=== PATIENT | female | born 1940 | race Caucasian/White ===

== ENCOUNTER → 2017-12-13 | Outpatient (REF) | payer OTHER ==
[2017-12-13 18:39] LABS: VITAMIN B12 LEVEL 237 PG/ML (247-911)
== END ==
LOC: M LAB REF 17:10
DX: K14.0 Glossitis (principal)
CPT/HCPCS: 82607

== ENCOUNTER 2018-10-19 21:05 | Emergency (ER) | payer OTHER ==
[~2018-10-19] VITALS: Ht 152.4 cm; Wt 90.9 kg
[~2018-10-19 21:05] MED LIST: ACCU1TAB2 OR; ASPI81TA45 OR; CALCTAB22 OR; PROT1TAB2 OR; SERT100T OR; SIMV40TA2 OR; VICO5TAB OR; VITAMIN D50000 UNT OR
[2018-10-19] MEDS ORDERED: VITA200016 PO (21:25)
--- NOTE | 2018-10-19 23:32 | REP ---
Clinical: Trauma. Technique: AP and lateral views of the left humerus. Findings: Degenerative changes at the shoulder and elbow. No acute fracture or dislocation. Impression: No obvious acute fracture or dislocation. Electronically Signed by Mike Maravilla MD 10/19/2018 11:23 P
[2018-10-19 23:43] VITALS: BP 176/85
== END 2018-10-19 23:46 | disposition home or self-care (01) ==
LOC: M ED 21:05
DX: S59.902A Unspecified injury of left elbow, initial encounter (principal); W01.0XXA Fall on same level from slipping, tripping and stumbling without subsequent striking against object, initial encounter; Y92.009 Unspecified place in unspecified non-institutional (private) residence as the place of occurrence of the external cause; Z87.81 Personal history of (healed) traumatic fracture; I10 Essential (primary) hypertension; E78.5 Hyperlipidemia, unspecified; Z79.82 Long term (current) use of aspirin; Z79.899 Other long term (current) drug therapy

== ENCOUNTER → 2019-03-19 | Outpatient (REF) | payer OTHER ==
[~2019-03-19] MED LIST changes: +VITA200016 PO
== END ==
LOC: M LAB REF 16:46
PROVIDERS: ATTEND Nurse Practitioner Adult Health
DX: K14.0 Glossitis (principal)

== ENCOUNTER → 2019-09-20 | Outpatient (REF) | payer OTHER ==
[~2019-09-20] MED LIST changes: +ASPI81TA85 PO; +B-12100010 PO; +ESOM1CAP5 PO; +HM V4000 PO; +PROT1TAB2 PO; +QUIN1TAB3 PO; +SIMV20TA22 PO; +ZOLO50TA PO
== END ==
LOC: M LAB REF 14:24
PROVIDERS: ATTEND Internal Medicine Gastroenterology
DX: R19.7 Diarrhea, unspecified (principal)

== ENCOUNTER 2019-10-02 20:13 | Emergency (ER) | payer OTHER ==
[~2019-10-02] VITALS: Ht 152.4 cm; Wt 86.4 kg
[2019-10-02 21:30] LABS: BASO % 0.7 % (0.0-1.0); EOS # 0.1 10^3/uL (0.0-0.5); EOS % 1.3 % (0.0-3.0); LYMPH # 1.6 10^3/uL (1.5-5.0); LYMPH % 35.5 % (24.0-44.0); MEAN CORPUSCULAR HEMOGLOBIN 26.3 pg (27.0-33.0); MEAN CORPUSCULAR HGB CONC 30.6 g/dl (32.0-36.5); MEAN CORPUSCULAR VOLUME 85.9 fl (80.0-96.0); MONO # 0.4 10^3/uL (0.0-0.8); NEUTROPHILS # 2.4 10^3/uL (1.5-8.5); NEUTROPHILS % 54.3 % (36.0-66.0); PLATELET COUNT, AUTOMATED 220 10^3/uL (150-450); RED BLOOD COUNT 4.19 10^6/uL (4.00-5.40); WHITE BLOOD COUNT 4.5 10^3/uL (4.0-10.0)
[2019-10-02] MEDS ORDERED: ONDANSETRON 4 MG ORAL DISINTEGRATING TAB (Q0162 PER 1MG) PO ONE (22:00)
[2019-10-02 22:14] LABS: APPEARANCE, URINE CLEAR (CLEAR); BACTERIA, URINE AUTO NEGATIVE (NEGATIVE); BILIRUBIN, URINE AUTO NEGATIVE (NEGATIVE); BLOOD, URINE BLOOD NEGATIVE (NEGATIVE); COLOR, URINE YELLOW (YELLOW); GLUCOSE, URINE (UA) AUTO NEGATIVE (NEGATIVE); KETONE, URINE AUTO 1+ mg/dL (NEGATIVE); LEUKOCYTE ESTERASE, URINE AUTO NEGATIVE (NEGATIVE); MUCUS, URINE SMALL (NEGATIVE); NITRITE, URINE AUTO NEGATIVE (NEGATIVE); PROTEIN, URINE AUTO NEGATIVE (NEGATIVE); RBC, URINE AUTO 1 /HPF (0-3); SPECIFIC GRAVITY URINE AUTO 1.025 (1.002-1.035); SQUAMOUS EPITHELIAL CELL UR AU 0 /HPF (0-6); UROBILINOGEN, URINE AUTO 0.2 mg/dL (0.0-2.0); WBC, URINE AUTO 1 /HPF (0-3)
[2019-10-02] MEDS ORDERED: NS 1,000 ML IV ONE (22:30)
[2019-10-02 23:42] VITALS: BP 139/63
== END 2019-10-02 23:49 | disposition home or self-care (01) ==
LOC: M ED 20:13
DX: R10.84 Generalized abdominal pain (principal); E86.0 Dehydration; R11.2 Nausea with vomiting, unspecified; R19.7 Diarrhea, unspecified; I10 Essential (primary) hypertension; K58.0 Irritable bowel syndrome with diarrhea; Z79.82 Long term (current) use of aspirin; Z79.899 Other long term (current) drug therapy
CPT/HCPCS: 80047; 81001; 85025; 96360; 99284; Q0162

== ENCOUNTER → 2019-10-03 | Outpatient (REF) | payer OTHER | LOC: M LAB REF 16:44 | PROVIDERS: ATTEND Physician Assistant | DX: R19.7 Diarrhea, unspecified (principal) ==

== ENCOUNTER → 2021-06-05 | Outpatient (CLI) | payer OTHER ==
[~2021-06-05] MED LIST changes: -ASPI81TA85 PO; +ASPI81TA86 PO; +BAYE81TA10 PO; +OCUVTAB4 PO; +VITA500C24 PO; +ZOLO100T PO
== END ==
LOC: M LABSMTC 11:05
PROVIDERS: ATTEND Anesthesiology
DX: Z01.812 Encounter for preprocedural laboratory examination (principal); Z20.822 Contact with and (suspected) exposure to COVID-19

== ENCOUNTER 2021-06-10 06:51 | Day surgery (SDC) | payer OTHER ==
[~2021-06-10] VITALS: Ht 147.3 cm; Wt 81.2 kg
[~2021-06-10 06:51] MED LIST changes: +NS 1,000 ML IV ONE
--- OUTSIDE RECORDS SUMMARY | 2021-06-10 06:57 | CCD | Continuity of Care Document ---
Author Author Myesha SORIA DO Organization Unknown Address [address] [place] [address] Phone [phone] Care Team Providers Care Substance Abuse Rn Name Role Phone Regine Taylor AUTM [phone] Bina Yusuf ANP AUTM [phone] Sumanth Whiteside MD AUTM [phone] Problems Active Problems Provider Date Gastroesophageal reflux disease GUERDA E[place] Onset : 06/30/2012 Essential hypertension GUERDA Eaton Onset: 012 Osteoporosis GUERDA Eaton Onset: 06/30/2012 Depressive disorder GUERDA Eaton Onset: 06/30/2012 Heart murmur GUERDA Eaton Onset: 06/30/2012 Pure hypercholesterolemia Willam Lemon D.O. Onset: 06/30/2012 Social History Type Date Description Comments Sex Unknown ETOH Use Denies alcohol use Tobacco Use Start: Unknown Patient has never smoked Allergies and adverse reactions Active Allergies Criticality Reaction | Severity Comments Date No Known Drug Allergy Unable to assess criticality 02/17/2011 Medications Active Medications SIG Qnty Indications Ordering Provide r Date Vitamin B12 1000mcg Tablets ER 1 by mouth every day GUERDA West 06/19/[address] 1 by mouth twice every day 180caps GUERDA West 06/19/2018 Vitamin D3 2000Unit Tablets 1 po qd 90tabs GUERDA West 08/24/2016 Sertraline HCL 100mg Tablets take 1 tablet daily 90tabs GUERDA West 06/30/2012 Simvastatin 20mg Tablets take 1 tablet at bedtime 90tabs Bina Yusuf, GUERDA 02/23/2012 Aspirin Adult Low Strength 81mg Ch ewtabs 1 po qd 90units Regine Taylor, [facility] 1 Quinapril HCL 20mg Tablets take 1 tablet daily 90tabs Bnia Yusuf, GUERDA 02/17/2011 Medications Administered in Office Medication SIG Qnty Indications Ordering Provider Date Covid-19 vaccine, Unspecified Inj ection Unknown 05/18/2021 Reclast 1MG [id number] Injection GUERDA West 10/21/2008 IV Infusion Up To 1 Hour Injection GUERDA West 10/21/2008 Immunizations CPT Code Status Date Vaccine Lot # [id number] Given 10/24/2020 Covid-19 Pfizer vaccine, 30 mcg/ 0.3 mL [id number] Given 09/26/2020 Covid-19 Pfizer vaccine, 30 mcg/ 0.3 mL U-Flu Given 05/15/2018 Influenza,Unspecified [id number] Given 06/26/2013 Fluvirin Virus Vaccine 40123 01 51378 Given 05/17/2007 Influenza Virus Vaccine 21241 Given 05/03/2006 Influenza Virus Vaccine [id number] Given 04/19/2005 Pneumovax 23 Vital Signs Date Vital Result Comment 06/09/2021 1:31pm BP Systolic 132 mmHg BP Diastolic 64 mmHg Heart Rate 68 /min Height 62 inches 5'2" Weight 182.00 lb O2 % BldC Oximetry 95 % BMI (Body Mass Index) 33.3 kg/m2 02/25/2021 9:18am BP Systolic 134 mmHg BP Diastolic 82 mmHg Heart Rate 74 /min Height 62 inches 5'2" Weight 188.00 lb O2 % BldC Oximetry 95 % BMI (Body Mass Index) 34.4 kg/m2 Results Test Acquired Date Facility Test Result H/L Range Note Coronavirus 2019 Nasopharygeal 06/05/2021 [facility] [id number] [place] [address] [phone] Coronavirus 2019 Nasopharygeal ASSAY INFORMATIO <SEE N OTE> 1 Complete Blood Count 02/25/2021 [facility] [employer] sjuan Bander Operator: [place] [address] [phone] WBC 4.8 x10*3/UL 4.1 - 10.9 RBC 4.25 x10*6/UL 4.20 - 6.30 Hemoglobin 11.6 g/dL Low 12.0 - 18.0 Hematocrit 35.8 % Low 37.0 - 51.0 MCV 84.2 fL 80.0 - 97.0 MCH 27.4 pg 26.0 - 32.0 MCHC 32.5 g/dL 31.0 - 38.0 RDW 14.3 % High 11.6 - 13.7 PLT 308 x10*3/UL 140 - 440 MPV 8.0 FL 7.8 - 11.0 Lymph % 35.3 % 10.0 - 58.5 Mid % 6.5 % 1.7 - 9.3 Neut % 58.2 % 37.0 - 92.0 Lymph # 1.7 x10*3/UL 0.6 - 4.1 Mid # 0.3 x10*3/UL 0.1 - 0.6 Neut # 2.8 x10*3/UL 2.0 - 7.8 Comprehensive Chem Profile 02/25/2021 [place] [facility] Quan Bander Operator: [place] [address] [phone] Glucose 89 mg/dL 74 - 99 2 BUN 24 mg/dL High 7 - 18 Creatinine 0.8 mg/dL 0.6 - 1.3 Sodium 142 mEq/L 136 - 145 Potassium 4.4 mEq/L 3.5 - 5.1 Chloride 106 mEq/L 98 - 107 Carbon Dioxide 27 mEq/L 21 - 32 Calcium 9.1 mg/dL 8.5 - 10.1 Alk. Phosphatase 63 mg/dL 46 - 116 Total Bilirubin 0.5 mg/dL 0.2 - 1.0 Ast (Sgot) 14 U/L Low 15 - 37 Alt (SGPT) 22 U/L 12 - 78 Albumin 3.9 g/dL 3.4 - 5.0 Total Protein 6.7 g/dL 6.4 - 8.2 A/G Ratio 1.39 CALC 1.00 - 1.90 GFR >= 60 mL/min >60 GFR >= 60 mL/min >60 3 Lipid Profile 02/25/2021 [facility] Bander Operator: [place] [address] [phone] Cholesterol 213 mg/dL High 131 - 200 Triglycerides 66 mg/dL 30 - 150 HDL Cholesterol 108 mg/dL High 35 - 60 LDL (Calculated) 92 CALC 50 - 159 1 ASSAY INFORMATION: Real Time RT-PCR NOTE: The COVID-19 assay has been cleared by the U.S. Food and Drug Administration under the Emergency Use Authorization (EUA). [facility] are designated as high complexity laboratories by the Clinical Laboratory Improvement Amendments of 1988(CLIA) and are qualified to perform this test. Not Detected 2 100-125 mg/dL PRE-DIABET ES/FASTING >126 mg/dL DIABETES/FASTING 3 CHRONIC KIDNEY DISEASE STAGI NG PER NKF STAGE I & II GFR >= 60 NORMAL TO MILDLY DECREASED STAGE III GFR 30-59 MODERATELY DECREASED STAGE IV GFR 15-29 SEVERELY DECREASED STAGE V GFR <15 VERY LITTLE GFR LEFT ESRD GFR <15 ON MOLD PULLER Procedures Date Code Description Status 06/08/2021 740852813 Diabetic Retinal Eye Exam [facility] 02/25/2021 85371 Office/Outpatient Established Lo w MDM 20-29 Min Completed 06/28/2013 [id number] Mammogram Completed 06/26/2012 [id number] Colonoscopy Completed 06/13/2012 [id number] Mammogram Completed 09/30/2008 [id number] Mammogram Completed 08/16/2007 [id number] Bone Mineral Density Test Comple [facility] Medical Devices Description No Information Available Encounters Type Date Location Provider Dx Diagnosis Office Visit 02/25/2021 9:20a [facility] Bina Yusuf, ANP I10 Essential (primary) hypertension E78.00 Pure hypercholesterolemia, u nspecified K21.9 Gastro-esophageal reflux dis ease without esophagitis F33.0 Major depressive disorder, r ecurrent, mild Assessments Date Code Description Provider 02/25/2021 I10 Essential (primary) hypertension GUERDA West 02/25/2021 E78.00 Pure hypercholesterolemia, unspe cified GUERDA West 02/25/2021 K21.9 Gastro-esophageal reflux disease without esophagitis GUERDA West 02/25/2021 F33.0 Major depressive disorder, recur rent, mild GUERDA West Plan of Treatment Future Appointment(s):* 03/03/2022 8:20 am - GUERDA West at [facility] Functional Status Description No Information Available Mental Status Description No Information Available Referrals Description No Information Available
--- OUTSIDE RECORDS SUMMARY | 2021-06-10 06:57 | CCD | Continuity of Care Document ---
Author Author Myesha CATHERINE MD Organization Unknown Address [address] [place] [address] Phone [phone] Care Team Providers Care Decommissioning Well Site Manager Name Role Phone Bina Yusuf ANP AUTM [phone] Problems Description No Information Available Social History Type Date Description Comments Sex Unknown Tobacco Use Start: Unknown Never Smoked Cigarettes Tobacco Use Start: Unknown Non-smoker, Non-drinker, Non-dean g User Smoking Status Reviewed: 06/08/21 Non-smoker, Non-drinker, Non- drug User Exercise Type/Frequency Does not exercise Allergies and adverse reactions Description No Known Drug Allergies Medications Active Medications SIG Qnty Indications Ordering Provide r Date Simvastatin 20mg Tablets juanito y Unknown Sertraline HCL 50mg Tablets 1 by mouth every day Unknown Esomeprazole Magnesium 20mg Capsul es DR 1 by mouth every day Unknown Quinapril HCL 20mg Tablets Unknown Aspirin Adult Low Dose 81mg Tablet s DR 1 by mouth every day Unknown Vitamin D3 50mcg (1999 Ut) Capsules Unknown Vitamin B12 500mcg Tablets by mouth daily Unknown Vitamin C 500mg Chewtabs 2x a day Unknown Immunizations Description No Information Available Vital Signs Date Vital Result Comment 06/08/2021 10:35am BP Systolic 122 mmHg BP Diastolic 72 mmHg Height 58.50 inches 4'10.50" Weight 181.00 lb BMI (Body Mass Index) 37.2 kg/m2 BSA (Body Surface Area) 1.76 m2 Results Description No Information Available Procedures Date Code Description Status 06/08/2021 98147 Office/Outpatient New Moderate M DM 45-59 Minutes Completed Medical Devices Description No Information Available Encounters Type Date Location Provider Dx Diagnosis Office Visit 06/08/2021 10:15a [facility] soft water mechanic Peyton Catherine MD 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 Assessments Date Code Description Provider 06/08/2021 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
--- OUTSIDE RECORDS SUMMARY | 2021-06-10 06:57 | CCD ---
Author Author [facility] Organization [facility] Address Unknown Phone Unavailable Care Team Providers Care Loom Doffer Name Role Phone Arlette Bob MD Unavailable Unavailable Arlette Bob MD Unavailable Unavailable Arlette Bob MD Unavailable Unavailable Arlette Bob MD Unavailable Unavailable Arlette Bob MD Unavailable Unavailable Arlette Bob MD Unavailable Unavailable Arlette Bob MD Unavailable Unavailable Arlette Bob MD Unavailable Unavailable Arlette Bob MD Unavailable Unavailable Arlette Bob MD Unavailable Unavailable Arlette Bob MD Unavailable Unavailable Arlette Bob MD Unavailable Unavailable Arlette Bob MD Unavailable Unavailable Arlette Bob MD Unavailable Unavailable Arlette Bob MD Unavailable Unavailable Arlette Bob MD Unavailable Unavailable Arlette oBb MD Unavailable Unavailable Arlette Bob MD Unavailable Unavailable Arlette Bob MD Unavailable Unavailable Arlette Bob MD Unavailable Unavailable Arlette Bob MD Unavailable Unavailable Arlette Bob MD Unavailable Unavailable Arlette Bob MD Unavailable Unavailable Arlette Bob MD Unavailable Unavailable Arlette Bob MD Unavailable Unavailable Arlette Bob MD Unavailable Unavailable Arlette Bob MD Unavailable Unavailable Arlette Bob MD Unavailable Unavailable Arlette Bob MD Unavailable Unavailable Arlette Bob MD Unavailable Unavailable Arlette Bob MD Unavailable Unavailable Arlette Bob MD Unavailable Unavailable Arlette Bob MD Unavailable Unavailable Arlette Bob MD Unavailable Unavailable Paulino, S Sebastian RIVAS Unavailable Unavailable Paulino, S Sebastian MD Unavailable Unavailable Paulino, S Sebastian MD Unavailable Unavailable Paulino, S Sebastian MD Unavailable Unavailable Paulino, S Sebastian MD Unavailable Unavailable Paulino, S Sebastian MD Unavailable Unavailable Paulino, S Sebastian MD Unavailable Unavailable Paulino, S Sebastian MD Unavailable Unavailable Paulino, S Sebastian MD Unavailable Unavailable Paulino, S Sebastian MD Unavailable Unavailable Paulino, S Sebastian MD Unavailable Unavailable Paulino, S Sebastian MD Unavailable Unavailable Paulino, S Sebastian MD Unavailable Unavailable Paulino, S Sebastian MD Unavailable Unavailable Paulino, S Sebastian MD Unavailable Unavailable Paulino, S Sebastian MD Unavailable Unavailable Paulino, S Sebastian MD Unavailable Unavailable CATHERINE, Loren AWAN MD Unavailable Unavailable CATHERINE, Loren AWAN MD Unavailable Unavailable CATHERINE, Loren AWAN MD Unavailable Unavailable CATHERINE, Loren AWAN MD Unavailable Unavailable CATHERINE, Loren AWAN MD Unavailable Unavailable CATHERINE, Loren AWAN MD Unavailable Unavailable CATHERINE, Loren AWAN MD Unavailable Unavailable CATHERINE, Loren AWAN MD Unavailable Unavailable CATHERINE, Loren AWAN MD Unavailable Unavailable CATHERINE, Loren AWAN MD Unavailable Unavailable CATHERINE, Loren AWAN MD Unavailable Unavailable CATHERINE, Loren AWAN MD Unavailable Unavailable CATHERINE, Loren AWAN MD Unavailable Unavailable CATHERINE, Loren AWAN MD Unavailable Unavailable CATHERINE, Loren AWAN MD Unavailable Unavailable CATHERINE, Loren AWAN MD Unavailable Unavailable CATHERINE, Loren AWAN MD Unavailable Unavailable CATHERINE, Loren AWAN MD Unavailable Unavailable CATHERINE, Loren AWAN MD Unavailable Unavailable CATHERINE, Loren AWAN MD Unavailable Unavailable CATHERINE, Loren AWAN MD Unavailable Unavailable CATHERINE, Loren AWAN MD Unavailable Unavailable CATHERINE, Loren AWAN MD Unavailable Unavailable CATHERINE, Loren AWAN MD Unavailable Unavailable CATHERINE, Loren AWAN MD Unavailable Unavailable CATHERINE, Loren AWAN MD Unavailable Unavailable CATHERINE, Loren AWAN MD Unavailable Unavailable CATHERINE, Loren AWAN MD Unavailable Unavailable CATHERINE, Loren AWAN MD Unavailable Unavailable CATHERINE, Loren AWAN MD Unavailable Unavailable CATHERINE, Loren AWAN MD Unavailable Unavailable CATHERINE, Loren AWAN MD Unavailable Unavailable CATHERINE, Loren AWAN MD Unavailable Unavailable CATHERINE, Loren AWAN MD Unavailable Unavailable CATHERINE, Loren AWAN MD Unavailable Unavailable CATHERINE, Loren AWAN MD Unavailable Unavailable CATHERINE, Loren AWAN MD Unavailable Unavailable CATHERINE, Loren AWAN MD Unavailable Unavailable CATHERINE, Loren AWAN MD Unavailable Unavailable Loren CATHERINE MD Unavailable Unavailable Loren CATHERINE MD Unavailable Unavailable Loren CATHERINE MD Unavailable Unavailable Loren CATHERINE MD Unavailable Unavailable Loren CATHERINE MD Unavailable Unavailable Loren CATHERINE MD Unavailable Unavailable FLORIDALMA, J Bina ANP Unavailable Unavailable FLORIDALMA, J Bina ANP Unavailable Unavailable FLORIDALMA, J Bina ANP Unavailable Unavailable FLORIDALMA, J Bina ANP Unavailable Unavailable FLORIDALMA, J Bina ANP Unavailable Unavailable FLORIDALMA, J Bina ANP Unavailable Unavailable FLORIDALMA, J Bina ANP Unavailable Unavailable FLORIDALMA, J Bina ANP Unavailable Unavailable FLORIDALMA, J Bina ANP Unavailable Unavailable FLORIDALMA, J Bina ANP Unavailable Unavailable FLORIDALMA, J Bina ANP Unavailable Unavailable FLORIDALMA, J Bina ANP Unavailable Unavailable FLORIDALMA, J Bina ANP Unavailable Unavailable FLORIDALMA, J Bina ANP Unavailable Unavailable FLORIDALMA, J Bina ANP Unavailable Unavailable FLORIDALMA, J Bina ANP Unavailable Unavailable FLORIDALMA, J Bina ANP Unavailable Unavailable FLORIDALMA, J Bina ANP Unavailable Unavailable FLORIDALMA, J Bina ANP Unavailable Unavailable FLORIDALMA, J Bina ANP Unavailable Unavailable FLORIDALMA, J Bina ANP Unavailable Unavailable FLORIDALMA, J Bina ANP Unavailable Unavailable FLORIDALMA, J Bina ANP Unavailable Unavailable FLORIDALMA, J Bina ANP Unavailable Unavailable FLORIDALMA, J Bina ANP Unavailable Unavailable FLORIDALMA, J Bina ANP Unavailable Unavailable FLORIDALMA, J Bina ANP Unavailable Unavailable FLORIDALMA, J Bina ANP Unavailable Unavailable FLORIDALMA, J Bina ANP Unavailable Unavailable FLORIDALMA, J Bina ANP Unavailable Unavailable FLORIDALMA, J Bina ANP Unavailable Unavailable FLORIDALMA, J Bina ANP Unavailable Unavailable FLORIDALMA, J Bina ANP Unavailable Unavailable FLORIDALMA, J Bina ANP Unavailable Unavailable FLORIDALMA, J Bina ANP Unavailable Unavailable FLORIDALMA, J Bina ANP Unavailable Unavailable FLORIDALMA, J Bina ANP Unavailable Unavailable FLORIDALMA, J Bina ANP Unavailable Unavailable FLORIDALMA, J Bina ANP Unavailable Unavailable FLORIDALMA, J Bina ANP Unavailable Unavailable FLORIDALMA, J Bina ANP Unavailable Unavailable FLORIDALMA, J Bina ANP Unavailable Unavailable FLORIDALMA, J Bina ANP Unavailable Unavailable FLORIDALMA, J Bina ANP Unavailable Unavailable FLORIDALMA, J Bina ANP Unavailable Unavailable FLORIDALMA, J Bina ANP Unavailable Unavailable FLORIDALMA, J Bina ANP Unavailable Unavailable FLORIDALMA, J Bina ANP Unavailable Unavailable FLORIDALMA, J Bina ANP Unavailable Unavailable FLORIDALMA, J Bina ANP Unavailable Unavailable FLORIDALMA, J Bina ANP Unavailable Unavailable FLORIDALMA, J Bina ANP Unavailable Unavailable FLORIDALMA, J Bina ANP Unavailable Unavailable FLORIDALMA, J Bina ANP Unavailable Unavailable FLORIDALMA, J Bina ANP Unavailable Unavailable FLORIDALMA, J Bina ANP Unavailable Unavailable FLORIDALMA, J Bina ANP Unavailable Unavailable FLORIDALMA, J Bina ANP Unavailable Unavailable FLORIDALMA, J Bina ANP Unavailable Unavailable FLORIDALMA, J Bina ANP Unavailable Unavailable FLORIDALMA, J Bina ANP Unavailable Unavailable FLORIDALMA, J Bina ANP Unavailable Unavailable FLORIDALMA, J Bina ANP Unavailable Unavailable FLORIDALMA, J Bina ANP Unavailable Unavailable Re-disclosure Warning The records that you are about to access may contain information from federally-assisted alcohol or drug abuse programs. If such information is present, then the following federally mandated warning applies: This information has been disclosed to you from records protected by federal confidentiality rules (42 CFR part 2). The federal rules prohibit you from making any further disclosure of this information unless further disclosure is expressly permitted by the written consent of the person to whom it pertains or as otherwise permitted by 42 CFR part 2. A general authorization for the release of medical or other information is NOT sufficient for this purpose. The Federal rules restrict any use of the information to criminally investigate or prosecute any alcohol or drug abuse patient.The records that you are about to access may contain highly sensitive health information, the redisclosure of which is protected by Article 27-F of the [facility] Public Health law. If you continue you may have access to information: Regarding HIV / AIDS; Provided by facilities licensed or operated by the [facility] Office of Mental Health; or Provided by the [facility] Office for People With Developmental Disabilities. If such information is present, then the following [facility] mandated warning applies: This information has been disclosed to you from confidential records which are protected by state law. State law prohibits you from making any further disclosure of this information without the specific written consent of the person to whom it pertains, or as otherwise permitted by law. Any unauthorized further disclosure in violation of state law may result in a fine or senior care sentence or both. A general authorization for the release of medical or other information is NOT sufficient authorization for further disc losure. Family History Family Member Name Family Member Gender Family Member Status Date o f Status Description Data Source(s) Unknown Male Problem [facility] ([facility]) Encounters Encounter Providers Location Date Indications Data Source(s ) Outpatient Attender: LV CATHERINE MD [facility] typing office worker 09:15:00 AM EST [facility] ([facility]) Outpatient Attender: Sebastian Bob MD Main Office 04/14/2021 03:45:00 PM EDT [facility] ([facility]) Outpatient Attender: Bina Allan 10/2020 09:20:00 AM EDT [facility] ([facility] ) Immunizations Vaccine Date Status Description Data Source(s) COVID-19 VACCINE Moderna 05/18/2021 12:00:00 AM EDT completed [facility]SIIS Vaccine Series Complete: YESThis Data wa s Submitted to [facility]. Covid-19 Pfizer vaccine, 30 mcg/ 0.3 mL 10/24/2020 09:22:00 AM EDT completed [facility] ([facility]) COVID-19 VACCINE Moderna 10/24/2020 12:00:00 AM EDT completed [facility]SIIS Vaccine Series Complete: YESThis Data wa s Submitted to [facility]. Covid-19 Pfizer vaccine, 30 mcg/ 0.3 mL 09/26/2020 08:22:00 AM EST completed [facility] ([facility]) COVID-19 VACCINE Moderna 09/26/2020 12:00:00 AM EST completed [facility]SIIS Vaccine Series Complete: NOThis Data was Submitted to [facility]. Medications Medication Brand Name Start Date Product Form Dose Route Admi nistrative Instructions Pharmacy Instructions Status Indications Reaction Description Data Source(s) Covid-19 vaccine, Unspecified 05/18/2021 12:00:00 AM EDT completed [facility]) Medication administered onsite Sutab Sutab 04/14/2021 12:00:00 AM EDT active [facility] ([facility]) Insurance Providers Payer name Policy type / Coverage type Policy ID Covered libertarian ID Covered libertarian's relationship to anderson Policy Anderson Plan Information [facility] [id number] SP [id number] [id number] [facility] [id number] SP [id number] Ghi/Emblem HLTH (pr) [facility] Part B [id number] Family Dependent [id number] Cigna/Nalc/MVP Commercial [id number] Family Dependent [id number] Cigna/Nalc/MVP Commercial [id number] Family Dependent Cigna Health and Life Ins Co F [id number] SELF [id number] Medicare C [id number] SELF [id number] A [facility] Benefit Plan F [id number] SELF [id number] Medicare C awaiting SELF awaiting Cigna Ins (pr)/Mary Commercial [id number] Self [id number] [facility]blem [facility] [id number] Self [id number] [facility] HEALTH BENEFIT PLAN [id number] 2 [id number] [facility] Commercial [id number] Self [id number] Ghi/Emblem Health Medigap Part B [id number] Self Fehp Cign[employer] Health and Life Insurance Co F [id number] SELF [id number] [facility]GHI [facility] P [id number] S [id number] SELF PAY 2 UNAVAILABLE 1 UNAVAILA BLE [facility] HEALTH BENEFIT PLAN [id number] SP [id number] Problems, Conditions, and Diagnoses Code Display Name Description Problem Type Effective Dates Data Source(s) [id number] Screening for malignant neoplasm of colo n Screening for malignant neoplasm of colon Problem 04/14/2021 12:00:00 AM EDT [facility] ([facility]) Surgeries/Procedures Procedure Description Date Indications Data Source(s) Diabetic Retinal Eye Exam 06/08/2021 12:00:00 AM EST [facility] ([facility]) OFFICE OUTPATIENT NEW 45 MINUTES 06/08/2021 12:00:00 A M EST [facility] ([facility]) OFFICE OUTPATIENT VISIT 25 MINUTES 04/14/2021 12:00:00 AM EDT [facility] ([facility]) OFFICE OUTPATIENT VISIT 15 MINUTES 02/25/2021 12:00:00 AM EDT [facility] ([facility]) Results ID Date Data Source [id number] 06/05/2021 09:20:00 AM EST [facility] ([facility]) Name Value Range Interpretation Code Description Data Jamila rce(s) Supporting Document(s) Coronavirus 2019 Nasopharygeal Laboratory test result [facility] ASSAY INFORMATION: Real Time RT-PCR NOTE: The COVID-19 assay has been cleared by the U.S. Food and Drug Administration under the Emergency Use Authorization (EUA). [facility] and [facility] are designated as high complexity laboratories by the Clinical Laboratory Improvement Amendments of 1988(CLIA) and are qualified to perform this test. Not Detected ID Date Data Source [id number] 02/25/2021 09:46:00 AM EDT [facility] ([facility]) Name Value Range Interpretation Code Description Data Jamila rce(s) Supporting Document(s) Triglyceride [Mass/volume] in Serum or Plasma 66 mg/dL 30-150 [facility] ([facility]) Cholesterol [Mass/volume] in Serum or Plasma 213 mg/dL 131-200 [facility] ([facility]) Cholesterol in LDL [Mass/volume] in Serum or Plasma by calcu lation 92 CALC 50-159 [facility] ([facility]) Cholesterol in HDL [Mass/volume] in Serum or Plasma 108 mg/dL 35-60 [facility] ([facility]) ID Date Data Source [id number] 02/25/2021 09:46:00 AM EDT [facility] ([facility]) Name Value Range Interpretation Code Description Data Jamila rce(s) Supporting Document(s) Glucose [Mass/volume] in Serum or Plasma 89 mg/dL 74-99 [facility] ([facility]) 100-125 mg/dL PRE-DIABETES/FASTING >126 mg/dL DIABETES/FASTING Urea nitrogen [Mass/volume] in Serum or Plasma 24 mg/dL 7-18 [facility] ([facility]) Creatinine 0.8 mg/dL 0.6-1.3 [facility] ([facility]) Sodium [Moles/volume] in Serum or Plasma 142 meq/L 136-145 [facility] ([facility]) Potassium [Moles/volume] in Serum or Plasma 4.4 meq/L 3.5-5.1 [facility] ([facility]) Chloride [Moles/volume] in Serum or Plasma 106 meq/L 98-107 [facility] ([facility]) Carbon dioxide, total [Moles/volume] in Serum or Plasma 27 meq/L 21 -32 [facility] ([facility]) Calcium [Mass/volume] in Serum or Plasma 9.1 mg/dL 8.5-10.1 [facility] ([facility]) Alkaline phosphatase isoenzyme [Units/volume] in Serum or Pl asma 63 mg/dL 46-116 [facility] Total Bilirubin 0.5 mg/dL 0.2-1.0 [facility] ([facility]) Aspartate aminotransferase [Enzymatic activity/volume] in Serum or Plasma 14 U/L 15-37 [facility] ([facility] ) Albumin [Mass/volume] in Serum or Plasma 3.9 g/dL 3.4-5.0 [facility] Alanine aminotransferase [Enzymatic activity/volume] in Seru m or Plasma 22 U/L 12-78 [facility] ([facility]) Proteinase 3 Ab [Units/volume] in Serum 6.7 g/dL 6.4-8.2 [facility] A/G Ratio 1.39 CALC 1.00-1.90 [facility]) Glomerular filtration rate/1.73 sq M pre dicted among blacks [Volume Rate/Area] in Serum or Plasma by Creatinine-based formula (MDRD) Laboratory test result [facility]) <content>CHRONIC KIDNEY DISEASE STAGING PER NKF</content>
<content></content>
<content>STAGE I & II GFR >= 60 NORMAL TO MILDLY DECREASED</content>
<content>STAGE III GFR 30-59 MODERATELY DECREASED</content>
<content>STAGE IV GFR 15-29 SEVERELY DECREASED</content>
<content>STAGE V GFR <15 VERY LITTLE GFR LEFT</content>
<content>ESRD GFR <15 ON COCKTAIL LOUNGE MANAGER</content>
<content></content> Glomerular filtration rate/1.73 sq M pre dicted among non-blacks [Volume Rate/Area] in Serum or Plasma by Creatinine-based formula (MDRD) Laboratory test result [facility] ([facility] ) ID Date Data Source [id number] 02/25/2021 09:46:00 AM EDT [facility] ([facility]) Name Value Range Interpretation Code Description Data Jamila rce(s) Supporting Document(s) Leukocytes [#/volume] in Blood by Automated count 4.8 x10*3/UL 4.1-10 .9 [facility] ([facility]) Hemoglobin [Mass/volume] in Blood 11.6 g/dL 12.0-18.0 [facility] Erythrocytes [#/volume] in Blood by Automated count 4.25 x10*6/UL 4.2 0-6.30 [facility] Hematocrit [Volume Fraction] of Blood by Automated count 35.8 % 3 7.0-51.0 [facility] MCH 27.4 pg 26.0-32.0 [facility]) MCV 84.2 fL 80.0-97.0 [facility] ([facility]) MCHC 32.5 g/dL 31.0-38.0 [facility] ([facility]) Platelets [#/volume] in Blood by Automated count 308 x10*3/UL 140-440 [facility] Erythrocyte distribution width [Ratio] by Automated count 14.3 % 11.6-13.7 [facility] ([facility]) Lymph % 35.3 % 10.0-58.5 [facility]) MPV 8.0 FL 7.8-11.0 [facility] ([facility]) Mid % 6.5 % 1.7-9.3 [facility]) Lymph # 1.7 x10*3/UL 0.6-4.1 [facility] ([facility]) Neut % 58.2 % 37.0-92.0 [facility] Mid # 0.3 x10*3/UL 0.1-0.6 [facility] ([facility]) Neut # 2.8 x10*3/UL 2.0-7.8 [facility] ([facility]) Procedure Social History Code Duration Value Status Description Data Source(s ) Smoking 06/08/2021 12:00:00 AM EST Non-smoker, Non-drink er, Non-drug User completed Non-smoker, Non-drinker, Non-drug User [facility] ([facility]) Vital Signs ID Date Data Source UNK Name Value Range Interpretation Code Description Data Source(s) Systolic blood pressure 132 mm[Hg] 132 mm[Hg] M EDENT ([facility]) Diastolic blood pressure 64 mm[Hg] 64 mm[Hg] [facility] ([facility]) Heart rate 68 /min 68 /min [facility] ([facility]) Body height 62 [in_i] 62 [in_i] [facility] ([facility]) 5'2" Body weight 182.00 [lb_av] 182.00 [lb_av] MED[facility] T ([facility]) Oxygen saturation in Arterial blood by Pulse oximetry 95 % 95 % [facility] ([facility]) Body mass index (BMI) [Ratio] 33.3 kg/m2 33.3 k g/m2 [facility] ([facility]) Body mass index (BMI) [Ratio] 37.2 kg/m2 37.2 k g/m2 [facility] ([place] [facility]) Body surface area Derived from formula 1.76 m2 1.76 m2 [facility] ([facility]) Systolic blood pressure 122 mm[Hg] 122 mm[Hg] M EDENT ([facility]) Diastolic blood pressure 72 mm[Hg] 72 mm[Hg] [facility] ([facility]) Body height 58.50 [in_i] 58.50 [in_i] [facility] ([facility]) 4'10.50" Body weight 181.00 [lb_av] 181.00 [lb_av] MEDEN T ([facility]) Body height 61 [in_i] 61 [in_i] [facility] 5'1" Body weight 185.00 [lb_av] 185.00 [lb_av] [facility] T ([facility]) Systolic blood pressure 128 mm[Hg] 128 mm[Hg] M EDENT ([facility]) Diastolic blood pressure 81 mm[Hg] 81 mm[Hg] [facility] ([facility]) Heart rate 98 /min 98 /min [facility] Body mass index (BMI) [Ratio] 35.0 kg/m2 35.0 k g/m2 [facility] ([facility]) Body weight 83.916 kg 83.916 kg [facility] ([facility]) Body temperature 97.7 [degF] 97.7 [degF] [facility] ([facility]) Oxygen saturation in Arterial blood by Pulse oximetry 95 % 95 % [facility] Heart rate 74 /min 74 /min [facility] ([facility]) Body height 62 [in_i] 62 [in_i] [facility] ([facility]) 5'2" Body weight 188.00 [lb_av] 188.00 [lb_av] MED[facility] T ([facility]) Body mass index (BMI) [Ratio] 34.4 kg/m2 34.4 k g/m2 [facility] ([facility]) Systolic blood pressure 134 mm[Hg] 134 mm[Hg] M EDENT ([facility]) Diastolic blood pressure 82 mm[Hg] 82 mm[Hg] [facility] ([facility])
--- OUTSIDE RECORDS SUMMARY | 2021-06-10 06:57 | CCD | Continuity of Care Document ---
Author Author Myesha BOB M.D. Organization Unknown Address [address] [place] [address] Phone [phone] Care Team Providers Care Service Secretary Name Role Phone Bina Yusuf AUTM [phone] Problems Active Problems Provider Date Screening for malignant neoplasm of colon Sebastian contreras M.D. Onset: 04/14/2021 Diarrhea Sebastian Bob M.D. Onset: 09/13/19 20 Stricture of esophagus Peter Sin Onset: 06/13 History of polyp of colon Peter Sin Onset: Gastroesophageal reflux disease Peter Sin Ons et: 06/13/2012 Essential hypertension Onset: 06/13/2012 Social History Type Date Description Comments Sex Unknown ETOH Use Denies alcohol use Tobacco Use Start: Unknown Patient has never smoked Allergies and adverse reactions Description No Known Drug Allergies Medications Active Medications SIG Qnty Indications Ordering Provide r Date Sutab [id number] Tablets as directed 1box Sebastian Bob M.D. 04/14/2021 Levaquin 500mg Tablets 1 tab by mouth every morning 5tabs Sebastian Bob M.D. 020 Quinapril HCL 20mg Tablets Regine Taylor,A.N.P. Sertraline HCL 50mg Tablets Regine Taylor,A.N.P. Simvastatin 20mg Tablets Regine Taylor,A.N.P. Aspirin Adult Low Dose 81mg Tablets DR Unknown B12 Unknown D3 Dots 50mcg (1999) Tablets Dispers Unknown Pantoprazole Sodium 40mg Tablets DR Unknown Immunizations Description No Information Available Vital Signs Date Vital Result Comment 04/14/2021 4:19pm Height 61 inches 5'1" Weight 185.00 lb BP Systolic 128 mmHg BP Diastolic 81 mmHg Heart Rate 98 /min BMI (Body Mass Index) 35.0 kg/m2 Weight 83.916 kg Body Temperature 97.7 F 09/13/2019 3:31pm Height 61 inches 5'1" Weight 191.00 lb BP Systolic 120 mmHg BP Diastolic 85 mmHg Heart Rate 95 /min BMI (Body Mass Index) 36.1 kg/m2 Weight 86.638 kg Results Description No Information Available Procedures Date Code Description Status 04/14/2021 80170 Office/Outpatient Established Mo d MDM 30-39 Min Completed Medical Devices Description No Information Available Encounters Type Date Location Provider Dx Diagnosis Office Visit 04/14/2021 3:45p Main Office Sebastian Bob M.D. R 19.7 Diarrhea, unspecified K21.9 Gastro-esophageal reflux dis ease without esophagitis Assessments Date Code Description Provider 04/14/2021 R19.7 Diarrhea, unspecified Sebastian Bob M.D. 04/14/2021 K21.9 Gastroesophageal reflux disease Sebastian Bob M.D. Plan of Treatment Future Appointment(s):* 06/10/2021 8:30 am - Sebastian Bob M.D. at Main Office 04/14/2021 - Sebastian Bob M.D.* R19.7 Diarrhea, unspecified* Comments:* 80 yo wf who presents for a colonoscopy/egd due to a h/o irregular bowel habits/heartburn. Pt denies rectal bleeding. Has had explosive bouts of diarrhea. No family h/o colon cancer. No h/o chest pain, or sob. Pt has lost 25 lbs. Last scope was in . She has had a great deal of stress. Plan:1. Colonoscopy + egd.2. Informed consent. * K21.9 Gastroesophageal reflux disease* Comments:* As above. Functional Status Description No Information Available Mental Status Description No Information Available Referrals Description No Information Available
[2021-06-10] MEDS ORDERED: LIDOCAINE 2% 100MG/5ML SDV (FOR ANES.) As Ordered ONE (08:32)
[2021-06-10] MEDS ORDERED: propofoL 500 MG/50 ML VIAL As Ordered ONE (08:32)
--- NOTE | 2021-06-10 08:38 | ROOR ---
Patient Name: Myesha Monsalve Procedure Date: 06/10/2021 7:54 AM Date of : 1940 Age: 80 Room: [facility] Gender: Female Note Status: Finalized Procedure: Upper Endoscopy + Biopsies Indications: Heartburn, Exclusion of Mcmanus's esophagus Providers: Sebastian Bob MD Referring MD: Bina Yusuf NP Requesting Provider: Medicines: Monitored Anesthesia Care Complications: No immediate complications. Procedure: Pre-Anesthesia Assessment: - The heart rate, respiratory rate, oxygen saturations, blood pressure, adequacy of pulmonary ventilation, and response to care were monitored throughout the procedure. The Endoscope was introduced through the mouth, and advanced to the second part of duodenum. The upper GI endoscopy was accomplished without difficulty. The patient tolerated the procedure well. Findings: The Z-line was regular and was found 30 cm from the incisors. Multiple biopsies were obtained with cold forceps for evaluation to rule out Mcmanus's Esophagus randomly at the gastroesophageal junction. A large hiatal hernia was present. Localized mild inflammation characterized by congestion (edema) and erythema was found in the gastric antrum. Biopsies were taken with a cold forceps for Helicobacter pylori testing. The exam of the duodenum was otherwise normal. Impression: - Z-line regular, 30 cm from the incisors. - Large hiatal hernia. - Mucosal changes suspicious for gastritis. Biopsied. - Multiple biopsies were obtained at the gastroesophageal junction. - The examination was otherwise normal. Recommendation: - Patient has a contact number available for emergencies. The signs and symptoms of potential delayed complications were discussed with the patient. Return to normal activities tomorrow. Written discharge instructions were provided to the patient. - High fiber diet. - Discharge patient to home. - Continue present medications. - Await pathology results. - Telephone GI clinic for pathology results in 1 week. - Return to referring physician. - Do an upper GI series at appointment to be scheduled. - The findings and recommendations were discussed with the patient. Procedure Code(s): --- Professional --- 01246, Esophagogastroduodenoscopy, flexible, transoral; with biopsy, single or multiple Diagnosis Code(s): --- Professional --- K44.9, Diaphragmatic hernia without obstruction or gangrene K31.89, Other diseases of stomach and duodenum R12, Heartburn CPT copyright 2019 [employer]. All rights reserved. The codes documented in this report are preliminary and upon green building materials designer review may be revised to meet current compliance requirements. Sebastian Bob MD Sebastian Bob MD 06/10/2021 8:37:52 AM Electronically signed by Sebastian Bob MD Number of Addenda: 0 Note Initiated On: 06/10/2021 7:54 AM Estimated Blood Loss: Estimated blood loss: none.
--- NOTE | 2021-06-10 08:42 | ROOR ---
Patient Name: Myesha Monsalve Procedure Date: 06/10/2021 7:54 AM Date of : 1940 Age: 80 Room: [facility] Gender: Female Note Status: Finalized Procedure: Total Colonoscopy to Cecum + Bx. + Cold Snare Polypectomy Indications: Change in bowel habits, Clinically significant diarrhea of unexplained origin Providers: Sebastian Bob MD Referring MD: Bina Yusuf NP Requesting Provider: Medicines: Monitored Anesthesia Care Complications: No immediate complications. Procedure: Pre-Anesthesia Assessment: - The heart rate, respiratory rate, oxygen saturations, blood pressure, adequacy of pulmonary ventilation, and response to care were monitored throughout the procedure. The Colonoscope was introduced through the anus and advanced to the cecum, identified by appendiceal orifice and ileocecal valve. The colonoscopy was performed without difficulty. The patient tolerated the procedure well. The quality of the bowel preparation was good. Findings: The perianal and digital rectal examinations were normal. Non-bleeding internal hemorrhoids were found during retroflexion. The hemorrhoids were small and Grade I (internal hemorrhoids that do not prolapse). Multiple small and large-mouthed diverticula were found in the recto-sigmoid colon, sigmoid colon and descending colon. A small polyp was found in the transverse colon. The polyp was sessile. The polyp was removed with a cold snare. Resection and retrieval were complete. Biopsies for histology were taken with a cold forceps from the cecum, ascending colon, transverse colon and descending colon for evaluation of microscopic colitis. The exam was otherwise without abnormality on direct and retroflexion views. Impression: - Non-bleeding internal hemorrhoids. - Diverticulosis in the recto-sigmoid colon, in the sigmoid colon and in the descending colon. - One small polyp in the transverse colon, removed with a cold snare. Resected and retrieved. - The examination was otherwise normal on direct and retroflexion views. - Biopsies were taken with a cold forceps from the cecum, ascending colon, transverse colon and descending colon for evaluation of microscopic colitis. - The exam was otherwise normal to the cecum. Recommendation: - Patient has a contact number available for emergencies. The signs and symptoms of potential delayed complications were discussed with the patient. Return to normal activities tomorrow. Written discharge instructions were provided to the patient. - High fiber diet. - Discharge patient to home. - Continue present medications. - Await pathology results. - Repeat colonoscopy is not recommended for surveillance. - Return to referring physician. - Telephone GI clinic for pathology results in 1 week. - The findings and recommendations were discussed with the patient. Procedure Code(s): --- Professional --- 38494, Colonoscopy, flexible; with removal of tumor(s), polyp(s), or other lesion(s) by snare technique 16630, 59, Colonoscopy, flexible; with biopsy, single or multiple Diagnosis Code(s): --- Professional --- K64.0, First degree hemorrhoids K63.5, Polyp of colon R19.4, Change in bowel habit R19.7, Diarrhea, unspecified K57.30, Diverticulosis of large intestine without perforation or abscess without bleeding CPT copyright 2019 [employer]. All rights reserved. The codes documented in this report are preliminary and upon sales designer review may be revised to meet current compliance requirements. Sebastian Bob MD Sebastian Bob MD 06/10/2021 8:41:58 AM Electronically signed by Sebastian Bob MD Number of Addenda: 0 Note Initiated On: 06/10/2021 7:54 AM Estimated Blood Loss: Estimated blood loss: none.
[2021-06-10 09:00] VITALS: BP 162/75
== END 2021-06-10 09:05 | disposition home or self-care (01) ==
LOC: M OPP 06:51
PROVIDERS: ATTEND Internal Medicine Gastroenterology
DX: K63.5 Polyp of colon (principal); K57.30 Diverticulosis of large intestine without perforation or abscess without bleeding; K64.0 First degree hemorrhoids; K44.9 Diaphragmatic hernia without obstruction or gangrene; K31.89 Other diseases of stomach and duodenum; R12 Heartburn; R19.7 Diarrhea, unspecified; Z79.82 Long term (current) use of aspirin; Z79.899 Other long term (current) drug therapy

== ENCOUNTER → 2021-06-20 | Outpatient (CLI) | payer OTHER ==
[~2021-06-20] MED LIST changes: -NS 1,000 ML IV ONE
== END ==
LOC: M LABSMTC 11:50
PROVIDERS: ATTEND Anesthesiology
DX: Z01.812 Encounter for preprocedural laboratory examination (principal); Z20.822 Contact with and (suspected) exposure to COVID-19

== ENCOUNTER 2021-06-25 08:54 | Day surgery (SDC) | payer OTHER ==
[~2021-06-25] VITALS: Ht 147.3 cm; Wt 82.1 kg
[~2021-06-25 08:54] MED LIST changes: +LIDOCAINE 1% MDV 20ML VIAL SQ PRN; +LR 1,000 ML IV ONE
--- OUTSIDE RECORDS SUMMARY | 2021-06-25 08:59 | CCD | Continuity of Care Document ---
Author Author Myesha CATHERINE MD Organization Unknown Address [address] [place] [address] Phone [phone] Care Team Providers Care Customer Relations Advisor Name Role Phone Bina Yusuf ANP AUTM [phone] Problems Description No Information Available Social History [...] BSA (Body Surface Area) 1.76 m2 Results Test Acquired Date Facility Test Result H/L Range Note Thinprep W/Reflex HR HPV If Asc-US 06/08/2021 [facility] TP Reflex HPV ASCUS Normal Normal 1 TP Reflex HPV ASCUS SEE IMAGE 1 SPECIME N PART A. Vaginal, ThinPrep Pap ([employer] In[employer]) CYTOLOGY HX-------- Other Information: Hysterectomy FINAL DIAGNOSIS---- INTERPRETATION: Negative for Intraepithelial Lesion or Malignancy. SPECIMEN ADEQUACY:Satisfactory for evaluation. 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
--- OUTSIDE RECORDS SUMMARY | 2021-06-25 08:59 | CCD | Continuity of Care Document ---
Author Author Myesha BOB M.D. Organization Unknown Address [address] [place] [id number] Phone [phone] Care Team Providers Care Mail Rider Name Role Phone Bina Yusuf AUTM [phone] Problems Active Problems Provider Date Screening for [...] Qnty Indications Ordering Provide r Date Sutab [id number] Tablets as directed 1box Sebastian Bob M.D. [...] Index) 36.1 kg/m2 Weight 86.638 kg Results Test Acquired Date Facility Test Result H/L Range Note Laboratory test finding 06/10/[address] [address] Pathology Request For Service (SEE NOTE) 1, 2 1 FINAL DIAGNOSIS A-Stomach, antrum, biopsy: Gastric mucosa with minimal inflammation and reactive changes. No H.pylori is identified. B-Esophagus, below z-line, biopsy: Columnar mucosa without significant pathology. No intestinal metaplasia seen. No squamous mucosa is identified. C-Colon, random biopsy: Fragments of colonic mucosa with hyperplastic changes and nonspecific mild mi No evidence of microscopic colitis. D-Colon, transverse polyp, polypectomy: Hyperplastic polyp. 06/11/2021 - 1133 CLINICAL DIAGNOSIS Heartburn, R/O intestinal metaplasia, history of colon polyps 06/10/2021 - 1436 GROSS DIAGNOSIS A - Received in formalin labeled "biopsy antrum, R/O H. pylori" and consists of a fragment of tissue, 0.1 x 0.1 x 0.1 cm. All in one. B - Received in formalin labeled "biopsy below Z line, R/O Mcmanus's" and consists of a fragment of tissue, 0.2 x 0.2 x 0.2 cm. All in one. C - Received in formalin labeled "random colon biopsies, R/O microscopic colitis" and consists of fragments of tissue, 0.2 x 0.2 x 0.1 cm. All in one. D - Received in formalin labeled "colon polyp transverse colon" and consists of fragments of tissue, 0.1 x 0.1 x 0.1 cm. All in one. -OA 06/11/2021 - 1133 Signed QIANA EDMONDS MD 06/11/2021 1133 2 06/11/21 (Thr Jun 11) 11:42 PM SEBASTIAN BOB biopsies are all negative for any pathology Procedures Date Code Description Status 06/10/2021 03045 Colonoscopy Flexible Remove Tumo r/Polyp/Lesion Snare Technique Completed 06/10/2021 57493 Endoscopy Upper GI Biopsy Comple winsome 04/14/2021 45178 Office/Outpatient Established Mo d MDM 30-39 Min Completed Medical Devices Description No Information Available Encounters Type Date Location Provider Dx Diagnosis Office Visit 04/14/2021 3:45p Main Office Sebastian Bob M.D. R 19.7 Diarrhea, unspecified K21.9 Gastro-esophageal reflux dis ease without esophagitis Assessments Date Code Description Provider 06/10/2021 R19.4 Change in bowel habit Sebastian Bob M.D. 06/10/2021 K63.5 Polyp of colon Sebastian houston M.D. 06/10/2021 K64.0 First degree hemorrhoids Sebastian Bob M.D. 06/10/2021 K57.30 Diverticulosis of la rge intestine without perforation or abscess without bleeding Sebastian Bob M.D. 06/10/2021 R12 Heartburn Sebastian houston M.D. 06/10/2021 K31.89 Other diseases of stomach and du odenum Sebastian Bob M.D. 06/10/2021 K44.9 Diaphragmatic hernia without obs truction or gangrene Sebastian Bob M.D. 04/14/2021 R19.7 Diarrhea, unspecified Sebastian Bob M.D. 04/14/2021 K21.9 Gastroesophageal reflux disease Sebastian Bob M.D. Plan of Treatment 04/14/2021 - Sebastian Bob M.D.* R19.7 Diarrhea, [...]
--- OUTSIDE RECORDS SUMMARY | 2021-06-25 08:59 | CCD | Continuity of Care Document ---
Author Author Myesha BOB M.D. Organization Unknown Address [address] [place] [address] Phone [phone] Care Team Providers Care Boiler House Supervisor Name Role Phone Bina Yusuf AUTM [phone] Problems Active Problems Provider Date Screening for [...] Qnty Indications Ordering Provide r Date Sutab [id number] Tablets as directed 1box Sebastian Bob M.D. [...] H/L Range Note Laboratory test finding 06/10/[address] [address] Pathology Request For Service (SEE NOTE) 1, [...] biopsies are all negative for any pathology 06/17/21 (Wed Jun 17) 10:15 AM CARLO ZAMUDIO REPORTED TO PATIENT Procedures Date Code Description Status 06/10/2021 80777 Colonoscopy Flexible Remove Tumo r/Polyp/Lesion Snare Technique Completed 06/10/2021 93016 Endoscopy Upper GI Biopsy Comple winsome 04/14/2021 86393 Office/Outpatient Established Mo d MDM 30-39 Min [...]
--- OUTSIDE RECORDS SUMMARY | 2021-06-25 09:00 | CCD | Continuity of Care Document ---
Author Author Myesha BOB M.D. Organization Unknown Address [address] [place] [phone] Phone [phone] Care Team Providers Care Manager Mall Name Role Phone Bina Yusuf AUTM [phone] Problems Active Problems Provider Date Screening for [...] Qnty Indications Ordering Provide r Date Sutab [id number] Tablets as directed 1box Sebastian Bob M.D. [...] H/L Range Note Laboratory test finding 06/10/[address] [address] Pathology Request For Service (SEE NOTE) 1 1 FINAL DIAGNOSIS A-Stomach, antrum, biopsy: Gastric [...] 1133 Signed QIANA EDMONDS MD 06/11/2021 1133 Procedures Date Code Description Status 06/10/2021 60008 Colonoscopy Flexible Remove Tumo r/Polyp/Lesion Snare Technique Completed 06/10/2021 09759 Endoscopy Upper GI Biopsy Comple winsome 04/14/2021 94314 Office/Outpatient Established Mo d MDM 30-39 Min [...]
--- OUTSIDE RECORDS SUMMARY | 2021-06-25 09:00 | CCD ---
Author Author [facility] Organization [facility] Address Unknown Phone Unavailable Care Team Providers Care Border Inspector Name Role Phone Arlette Bob MD Unavailable [...] Unavailable Unavailable Arlette Bob MD Unavailable Unavailable Areltte Bob MD Unavailable Unavailable Arlette Bob MD Unavailable Unavailable Arlette Bob MD Unavailable Unavailable Arlette Bob MD Unavailable Unavailable Arlette Bob MD Unavailable Unavailable Arlette Bob MD Unavailable Unavailable Arlette Bob MD Unavailable Unavailable Arlette Bob MD Unavailable Unavailable Arlette Bob MD Unavailable Unavailable Arlette Bob MD Unavailable Unavailable Arlette Bob MD Unavailable Unavailable Paulino S Sebastian RIVAS Unavailable Unavailable Paulino S Sebastian RIVAS Unavailable Unavailable Paulino, S Sebastian RIVAS Unavailable Unavailable Paulino, S Sebastian RIVAS Unavailable Unavailable Paulino, S Sebastian RIVAS Unavailable Unavailable Paulino, S Sebastian RIVAS Unavailable Unavailable Paulino, S Sebastian MD Unavailable Unavailable Paulino, S Sebastian MD Unavailable Unavailable Paulino, S Sebastian MD Unavailable Unavailable Paulino, S Sebastian RIVAS Unavailable Unavailable Paulino, S Sebastian RIVAS Unavailable Unavailable Paulino, S Sebastian MD Unavailable Unavailable Paulino, S Sebastian MD Unavailable Unavailable Paulino, S Sebastian MD Unavailable Unavailable Paulino, S Sebastian RIVAS Unavailable Unavailable Paulino, S Sebastian RIVAS Unavailable Unavailable Paulino S Sebastian RIVAS Unavailable Unavailable Paulino S Sebastian RIVAS Unavailable Unavailable Paulino S Sebastian RIVAS Unavailable Unavailable Paulino S Sebastian RIVAS Unavailable Unavailable Loren CATHERINE MD Unavailable Unavailable DORENE, Loren AWAN MD Unavailable Unavailable CATHERINE, Loren AWAN MD Unavailable Unavailable CATHERINE, Loren AWAN MD Unavailable Unavailable CATHERINE, Loren AWAN MD Unavailable Unavailable CATHERINE, Loren AWAN MD Unavailable Unavailable CATHERINE, Loren AWAN MD Unavailable Unavailable CATHERINELoren MD Unavailable Unavailable CATHERINE, Loren AWAN MD Unavailable Unavailable CATHERINE, Loren AWAN MD Unavailable Unavailable CATHERINE, Loren AWAN MD Unavailable Unavailable CATHERINE, Loren AWAN MD Unavailable Unavailable CATHERINE, Loren AWAN MD Unavailable Unavailable CATHERINE, Loren AWAN MD Unavailable Unavailable CATHERINE, Loren AWAN MD Unavailable Unavailable CATHERINE, Loren AWAN MD Unavailable Unavailable CATHERINELoren MD Unavailable Unavailable CATHERINE, Loren AWAN MD Unavailable Unavailable CATHERINELoren MD Unavailable Unavailable CATHERINE, Loren AWAN MD Unavailable Unavailable CATHERINE, Loren AWAN MD Unavailable Unavailable CATHERINELoren MD Unavailable Unavailable CATHERINE, Loren AWAN MD Unavailable Unavailable Loren CATHERINE MD Unavailable Unavailable CATHERINE, Loren AWAN MD [...] CATHERINE, Loren AWAN MD Unavailable Unavailable CATHERINE, L LV MD Unavailable Unavailable Loren CATHERINE MD Unavailable [...] is protected by Article 27-F of the [facility] Public Health law. If you continue you may have access to information: Regarding HIV / AIDS; Provided by facilities licensed or operated by the [facility] Office of Mental Health; or Provided by the [facility] Office for People With Developmental Disabilities. If such information is present, then the following [facility] mandated warning applies: This information has been [...] law may result in a fine or longterm sentence or both. A general authorization for the release of medical or other information is NOT sufficient authorization for further disc losure. 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 Covid-19 Pfizer vaccine, 30 mcg/ 0.3 mL 10/24/2020 09:22:00 AM EDT completed [facility] ([facility]) COVID-19 VACCINE Moderna 10/24/2020 12:00:00 AM EDT completed [facility] Vaccine Series Complete: YESThis Data wa s Submitted to [facility]. Covid-19 Pfizer vaccine, 30 mcg/ 0.3 mL 09/26/2020 08:22:00 AM EST completed [facility] ([facility]) COVID-19 VACCINE Moderna 09/26/2020 12:00:00 AM EST completed [facility] Vaccine Series Complete: NOThis Data was Submitted to [facility]. Medications Medication Brand Name Start Date Product Form Dose Route Admi nistrative Instructions Pharmacy Instructions Status Indications Reaction Description Data Source(s) Covid-19 vaccine, Unspecified 05/18/2021 12:00:00 AM EDT completed [facility]) Medication administered onsite Sutab Sutab 04/14/2021 12:00:00 AM EDT active [facility] ([facility]) Insurance Providers Payer name Policy type / Coverage type Policy ID Covered constitution party ID Covered constitution party's relationship to anderson Policy Anderson Plan Information [facility] [id number] SP [id number] [facility] [id number] [facility] [id number] SP [id number] Ghi/Emblem HLTH (pr) Medigap Part B [id number] Family Dependent [id number] Cigna/Nalc/MVP Commercial [id number] Family Dependent [id number] Cigna/Nalc/MVP Commercial [id number] Family Dependent Cigna Health and Life Ins Co F [id number] SELF [id number] Medicare C [id number] SELF [id number] A [facility] Hl Benefit Plan F [id number] SELF [id number] Medicare C awaiting SELF awaiting Cigna Ins (pr)/Mary Commercial [id number] Self [id number] Ghi/Emblem Health Medigap Part B [id number] Self [id number] [facility] HEALTH BENEFIT PLAN [id number] [facility] Commercial [id number] Self [id number] Ghi/Emblem Health Medigap Part B [id number] Self Fehp Cigna Health and Life Insurance Co F [id number] SELF [id number] [facility] P [id number] S [id number] SELF PAY 2 UNAVAILABLE 1 UNAVAILA BLE [facility] HEALTH BENEFIT PLAN [id number] SP [id number] Problems, Conditions, and Diagnoses Code Display Name Description Problem Type Effective Dates Data Source(s) [id number] Screening for malignant neoplasm of colo n Screening for malignant neoplasm of colon Problem 04/14/2021 12:00:00 AM EDT [facility] Surgeries/Procedures Procedure Description Date Indications Data Source(s) UPPER NDSC BIOPSY SINGLE/MULTIPLE 06/10/2021 12:00:00 AM EST [facility] ([facility]) COLSC FLX PROX SPLENIC FLXR RMVL LES SNARE TQ 06/10/20 12:00:00 AM EST [facility] ([facility]) OFFICE OUTPATIENT NEW 45 MINUTES 06/08/2021 12:00:00 A M EST [facility] (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) Diabetic Retinal Eye Exam 06/08/2021 12:00:00 AM EST [facility] ([facility]) OFFICE OUTPATIENT VISIT 25 MINUTES 04/14/2021 12:00:00 AM EDT [facility] ([facility]) OFFICE OUTPATIENT VISIT 15 MINUTES 02/25/2021 12:00:00 AM EDT [facility] ([facility]) Results ID Date Data Source [id number] 06/20/2021 11:40:00 AM EST [facility] Name Value Range Interpretation Code Description Data Jamila rce(s) Supporting Document(s) SARS-CoV-2 (COVID-19) RNA [Presence] in Respiratory specimen by MERLIN with probe detection Not Detected [facility] This lab was ordered by [facility] and reported by [facility]. ID Date Data Source [id number] 06/10/2021 08:38:00 AM EST [facility] ([facility]) Name Value Range Interpretation Code Description Data Jamila rce(s) Supporting Document(s) Surgical pathology study Laboratory test result [facility] ([facility]) FINAL DIAGNOSIS A-Stomach, antrum, biopsy: Gastric mucosa [...] cm. All in one. -OA 06/11/2021 - 1132 Signed QIANA EDMONDS MD 06/11/2021 113 ID Date Data Source [id number] 06/08/2021 12:00:00 PM EST [facility] (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) Name Value Range Interpretation Code Description Data Jamila rce(s) Supporting Document(s) TP Reflex HPV ASCUS Laboratory test result [facility] (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) SPECIMEN PART------ A. Vaginal, ThinPrep Pap (Smocker) CYTOLOGY HX-------- Other Information: Hysterectomy FINAL DIAGNOSIS---- INTERPRETATION: Negative for Intraepithelial Lesion or Malignancy. SPECIMEN ADEQUACY:Satisfactory for evaluation. TP Reflex HPV ASCUS Laboratory test result [facility] (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) ID Date Data Source [id number] 06/05/2021 09:20:00 AM EST [facility] Name Value Range Interpretation Code Description Data Jamila rce(s) Supporting Document(s) SARS-CoV-2 (COVID-19) RNA [Presence] in Respiratory specimen by MERLIN with probe detection Not Detected [facility] This lab was ordered by [facility] and reported by [facility]. ID Date Data Source [id number] 06/05/2021 09:20:00 AM EST [facility] Name Value Range Interpretation Code Description Data Jamila rce(s) Supporting Document(s) Coronavirus 2019 Nasopharygeal Laboratory test result [facility] ASSAY INFORMATION: Real Time RT-PCR NOTE: The COVID-19 assay has been cleared by the U.S. Food and Drug Administration under the Emergency Use Authorization (EUA). [facility] and [facility] are designated as high complexity laboratories by the Clinical Laboratory Improvement Amendments of 1988(CLIA) and are qualified to perform this test. Not Detected ID Date Data Source [id number] 02/25/2021 09:46:00 AM EDT [facility] Name Value Range Interpretation Code Description Data Jamila rce(s) Supporting Document(s) Triglyceride [Mass/volume] in Serum or Plasma 66 mg/dL 30-150 [facility] ([facility]) Cholesterol [Mass/volume] in Serum or Plasma 213 mg/dL 131-200 [facility] ([facility]) Cholesterol in LDL [Mass/volume] in Serum or Plasma by calcu lation 92 CALC 50-159 [facility] ([facility]) Cholesterol in HDL [Mass/volume] in Serum or Plasma 108 mg/dL 35-60 [facility] ([facility]) ID Date Data Source [id number] 02/25/2021 09:46:00 AM EDT [facility] Name Value Range Interpretation Code Description Data Jamila rce(s) Supporting Document(s) Glucose [Mass/volume] in Serum or Plasma 89 mg/dL 74-99 [facility] ([facility]) 100-125 mg/dL PRE-DIABETES/FASTING >126 mg/dL DIABETES/FASTING Urea nitrogen [Mass/volume] in Serum or Plasma 24 mg/dL 7-18 [facility] ([facility]) Creatinine 0.8 mg/dL 0.6-1.3 [facility] Sodium [Moles/volume] in Serum or Plasma 142 meq/L 136-145 [facility] ([facility]) Potassium [Moles/volume] in Serum or Plasma 4.4 meq/L 3.5-5.1 [facility] ([facility]) Chloride [Moles/volume] in Serum or Plasma 106 meq/L 98-107 [facility] ([facility]) Carbon dioxide, total [Moles/volume] in Serum or Plasma 27 meq/L 21 -32 [facility] ([facility]) Calcium [Mass/volume] in Serum or Plasma 9.1 mg/dL 8.5-10.1 [facility] ([facility]) Alkaline phosphatase isoenzyme [Units/volume] in Serum or Pl asma 63 mg/dL 46-116 [facility] ([facility]) Total Bilirubin 0.5 mg/dL 0.2-1.0 [facility] ([facility]) Aspartate aminotransferase [Enzymatic activity/volume] in Serum or Plasma 14 U/L 15-37 [facility] ([facility] ) Albumin [Mass/volume] in Serum or Plasma 3.9 g/dL 3.4-5.0 [facility] ([facility]) Alanine aminotransferase [Enzymatic activity/volume] in Seru m or Plasma 22 U/L 12-78 [facility] ([facility]) Proteinase 3 Ab [Units/volume] in Serum 6.7 g/dL 6.4-8.2 [facility] ([facility]) A/G Ratio 1.39 CALC 1.00-1.90 [facility]) Glomerular filtration rate/1.73 sq M pre dicted among blacks [Volume Rate/Area] in Serum or Plasma by Creatinine-based formula (MDRD) Laboratory test result [facility] <content>CHRONIC KIDNEY DISEASE STAGING PER NKF</content>
<content></content>
<content>STAGE I & II GFR >= 60 NORMAL TO MILDLY DECREASED</content>
<content>STAGE III GFR 30-59 MODERATELY DECREASED</content>
<content>STAGE IV GFR 15-29 SEVERELY DECREASED</content>
<content>STAGE V GFR <15 VERY LITTLE GFR LEFT</content>
<content>ESRD GFR <15 ON CONTROL ELECTRICIAN</content>
<content></content> Glomerular filtration rate/1.73 sq M pre dicted among non-blacks [Volume Rate/Area] in Serum or Plasma by Creatinine-based formula (MDRD) Laboratory test result [facility] ([facility] ) ID Date Data Source [id number] 02/25/2021 09:46:00 AM EDT [facility] ([facility]) Name Value Range Interpretation Code Description Data Jamila rce(s) Supporting Document(s) Leukocytes [#/volume] in Blood by Automated count 4.8 x10*3/UL 4.1-10 .9 [facility] ([facility]) Hemoglobin [Mass/volume] in Blood 11.6 g/dL 12.0-18.0 [facility] Erythrocytes [#/volume] in Blood by Automated count 4.25 x10*6/UL 4.2 0-6.30 [facility] Hematocrit [Volume Fraction] of Blood by Automated count 35.8 % 3 7.0-51.0 [facility] ([facility]) MCH 27.4 pg 26.0-32.0 [facility] MCV 84.2 fL 80.0-97.0 [facility] ([facility]) MCHC 32.5 g/dL 31.0-38.0 [facility] ([facility]) Platelets [#/volume] in Blood by Automated count 308 x10*3/UL 140-440 [facility] Erythrocyte distribution width [Ratio] by Automated count 14.3 % 11.6-13.7 [facility] ([facility]) Lymph % 35.3 % 10.0-58.5 [facility] ([facility]) MPV 8.0 FL 7.8-11.0 [facility] ([facility]) Mid % 6.5 % 1.7-9.3 [facility] ([facility]) Lymph # 1.7 x10*3/UL 0.6-4.1 [facility] ([facility]) Neut % 58.2 % 37.0-92.0 [facility] Mid # 0.3 x10*3/UL 0.1-0.6 [facility] ([facility]) Neut # 2.8 x10*3/UL 2.0-7.8 [facility] ([facility]) Procedure Social History Code Duration Value Status Description Data Source(s ) Smoking 06/08/2021 12:00:00 AM EST Non-smoker, Non-drink er, Non-drug User completed Non-smoker, Non-drinker, Non-drug User [facility] ([facility]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) Vital Signs ID Date Data Source UNK Name Value Range Interpretation Code Description Data Source(s) Systolic blood pressure 132 mm[Hg] 132 mm[Hg] M EDENT ([facility]) Diastolic blood pressure 64 mm[Hg] 64 mm[Hg] [facility] ([facility]) Heart rate 68 /min 68 /min [facility] ([facility]) Body height 62 [in_i] 62 [in_i] [facility] ([facility]) 5'2" Body weight 182.00 [lb_av] 182.00 [lb_av] MEDEN T ([facility]) Oxygen saturation in Arterial blood by Pulse oximetry 95 % 95 % [facility] ([facility]) Body mass index (BMI) [Ratio] 33.3 kg/m2 33.3 k g/m2 [facility] ([facility]) Body mass index (BMI) [Ratio] 37.2 kg/m2 37.2 k g/m2 [facility] (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) Body surface area Derived from formula 1.76 m2 1.76 m2 [facility] (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) Systolic blood pressure 122 mm[Hg] 122 mm[Hg] EDENT (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) Diastolic blood pressure 72 mm[Hg] 72 mm[Hg] [facility] (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) Body height 58.50 [in_i] 58.50 [in_i] [facility] (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) 4'10.50" Body weight 181.00 [lb_av] 181.00 [lb_av] MEDEN T (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) Body weight 185.00 [lb_av] 185.00 [lb_av] [facility] T ([facility]) Body height 61 [in_i] 61 [in_i] [facility] 5'1" Systolic blood pressure 128 mm[Hg] 128 mm[Hg] [facility] Heart rate 98 /min 98 /min [facility] Body mass index (BMI) [Ratio] 35.0 kg/m2 35.0 k g/m2 [facility] ([facility]) Diastolic blood pressure 81 mm[Hg] 81 mm[Hg] [facility] ([facility]) Body weight 83.916 kg 83.916 kg [facility] Body temperature 97.7 [degF] 97.7 [degF] [facility] Oxygen saturation in Arterial blood by Pulse oximetry 95 % 95 % [facility] ([facility]) Systolic blood pressure 134 mm[Hg] 134 mm[Hg] M [facility] Diastolic blood pressure 82 mm[Hg] 82 mm[Hg] [facility] Heart rate 74 /min 74 /min [facility] Body height 62 [in_i] 62 [in_i] [facility] ([facility]) 5'2" Body weight 188.00 [lb_av] 188.00 [lb_av] MEDEN T ([facility]) Body mass index (BMI) [Ratio] 34.4 kg/m2 34.4 k g/m2 [facility])
[2021-06-25] MEDS ORDERED: IBUP-1022 (09:19)
[2021-06-25] MEDS ORDERED: ONDANSETRON 4MG/2ML VIAL As Ordered ONE (10:18)
[2021-06-25] MEDS ORDERED: LIDOCAINE 2% 100MG/5ML SDV (FOR ANES.) As Ordered ONE (10:18)
[2021-06-25] MEDS ORDERED: KETOROLAC 60MG 2ML VIAL As Ordered ONE (10:18)
[2021-06-25] MEDS ORDERED: fentaNYL 250 MCG/5 ML INJECTION (J3010) As Ordered ONE (10:18)
[2021-06-25] MEDS ORDERED: propofoL 200 MG/20 ML VIAL As Ordered ONE (10:18)
[2021-06-25] MEDS ORDERED: dexameTHASONE 4 MG/ML 1ML VIAL (J1100 PER 1MG) As Ordered ONE (10:18)
[2021-06-25] MEDS ORDERED: ePHEDrine SULFATE 25 MG/5 ML(5MG/ML) SYRINGE As Ordered ONE (10:25)
[2021-06-25] MEDS ORDERED: ACETAMINOPHEN 1000MG 100ML IV BTL (OFIRMEV) (J0131 PER 10MG) As Ordered ONE (10:41)
[2021-06-25] MEDS ORDERED: ONDANSETRON 4MG/2ML VIAL IV PRN (11:55)
[2021-06-25] MEDS ORDERED: HYDROMORPHONE HCL 0.5 MG/ 0.5 ML SYRINGE (J1170 PER 1) IV PRN (11:55)
[2021-06-25] MEDS ORDERED: LR 1,000 ML IV SCH ×2 (11:55)
[2021-06-25] MEDS ORDERED: fentaNYL 100 MCG/2 ML INJECTION (J3010) IV PRN (11:55)
[2021-06-25] MEDS ORDERED: IBUPROFEN 600MG TAB PO PRN (11:55)
[2021-06-25] MEDS ORDERED: oxyCODONE 5MG TAB PO PRN (11:55)
[2021-06-25 14:25] VITALS: BP 160/80
--- NOTE | 2021-06-25 17:47 | RO ---
OPERATIVE NOTE DATE OF OPERATION: 06/25/2021 PREOPERATIVE DIAGNOSIS/INDICATION FOR SURGERY: Vulvar/periclitoral lesion. POSTOPERATIVE DIAGNOSIS: Vulvar/periclitoral lesion with left vaginal extension. PROCEDURE: Partial vulvectomy, removal of left vulva with additional removal of left and right periclitoral tissues and removal of a left vaginal extension of the tumor. SURGEON: Peyton Block MD DAIRY TECHNICIAN: None. ANESTHESIA: LMA. DESCRIPTION OF PROCEDURE AND FINDINGS: Myesha was brought to the operating room where sufficient anesthesia with LMA was given. She was prepped, draped and positioned in the usual sterile fashion and then examined under anesthesia. 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 Under anesthesia, we were better able to see that only did it extend to both left clitoral felipe and periclitoral tissues but also to right clitoral head and periclitoral tissues and there was a left vaginal extension. In this patient who is 80 her urethra has as is often found retracted up into the vaginal canal so the actual urethral meatus was not involved in the lesion but just posterior to the meatus on the left side sort of in the mid sidewall of the vagina, the lesion extended past the meatus up into the vagina for about a cm. In that area we did not have a large area to get negative margins but I did feel that it would be far enough that she did not need a [place] postop. We did check with the catheter that it was an unobstructed course of that urethra at the end of the case but at this point we had that extension into the vagina as well as a large friable lesion extending also in a papillary fashion up from the surface of the tissues as well and an atrophic set of tissues with the vaginal introitus and the caliber of the vagina is only about as much as my pinky so just over a cm in diameter. We used Allis clamps to hold the tumor and then had that retracted towards the patient's left so that we could better visualize the vaginal extension and then just use scissors to reflex the light over to the left side because the retractors really did not fit. We used a 15 blade to incise around the vaginal extension and make sure we had that tissue and that we did not get urethra, and then we went to the inferior aspect of the lesion and incised around the rest of the lesion. We also paused at the clitoral extensions and incised below those so that we could get the main bulk of the tumor away and we could come back to that periclitoral resection. The tumor itself was removed with a small margin. I did not have large margins of tissue because we had not confirmed the level of development of this lesion and for this patient, she had elected to have an excisional biopsy and a possible repeat should she need it. We did try to get clear margins so we were able to dissect to what appeared to be clear fat tissue most of the way through the labia. Obviously on the vaginal aspect that is not the case. With the main bulk of the lesion excised and that vaginal extension excised, we used 2-0 Vicryl for deep closure of the bleeding vessels beneath the lesion, palpated again to make sure we did not have any thickening of the tissues. We did have a little remaining thickening of the inferior posterior left extending toward the buttock so we came back to that. After removing the main mass of the tissue and controlling the pumping vessels, we went back to the periclitoral tissues and palpated those and excised on both right and left where we had extensions of the tumor until we no longer had any abnormal appearance or palpable textural change. Fortunately there did appear to be a palpable stiffness in the area of the clitoris but it was not clear there was extension of tumor there or if this was simply the texture due to it being clitoral tissue, so as had been discussed with her preoperatively, our plan was to take as she directed the abnormal tissue and she was aware that that meant that she might need us to come back, so rather than doing a frozen to see if we needed to do this, she wanted the permanent path, of course more accurate as well. When we had no more palpably abnormal tissues, we stopped the dissection, closed those tissues in the deep level to control the bleeding and then reexamined margins of the rest of the excision and as I mentioned on the inferior posterior left we had further thickening of the tissue, so we went ahead and excised that, again working around until we had tissues that appeared clear of tumor and then did another deep layer closure and then brought the lateral tissues in so that we could have a tension-free closure. We used both 2-0 and 3-0 Vicryl in initially interrupted stitches to hold all the tissue tension and then portions of running closure at the skin level. We were very careful to bring the vulvar tissues in towards the vaginal and periurethral tissues so as to close the wound in a tension-free hemostatic fashion. When we had a good result in that regard the procedure was ended. ESTIMATED BLOOD LOSS: About 33 mL. FLUID REPLACEMENT: Crystalloid. COMPLICATIONS: None. CONDITION AND DISPOSITION: Myesha tolerated the procedure well and was recovering in the recovery room in good condition.
[2021-06-26] MEDS ORDERED: NORCO, ANEXSIA 5/325MG TABLET (HYDROcodone/ACETAMINOPHEN) PO PRN (06:00)
== END 2021-06-25 14:30 | disposition home or self-care (01) ==
LOC: M SDC 08:54
PROVIDERS: ATTEND Obstetrics & Gynecology
DX: C51.9 Malignant neoplasm of vulva, unspecified (principal); I10 Essential (primary) hypertension; E78.5 Hyperlipidemia, unspecified; K58.8 Other irritable bowel syndrome; K21.9 Gastro-esophageal reflux disease without esophagitis; F32.9 Major depressive disorder, single episode, unspecified; Z79.899 Other long term (current) drug therapy
CPT/HCPCS: 56620; 88305; J0131; J1100; J1885; J2405; J3010

== ENCOUNTER → 2021-08-13 | Outpatient (CLI) | payer OTHER ==
[~2021-08-13] MED LIST changes: +IBUP-1022; -LIDOCAINE 1% MDV 20ML VIAL SQ PRN; -LR 1,000 ML IV ONE
== END ==
LOC: M RAD 14:49
PROVIDERS: ATTEND Obstetrics & Gynecology
DX: E07.9 Disorder of thyroid, unspecified (principal)

== ENCOUNTER → 2024-05-14 | Outpatient (REF) | payer OTHER ==
[~2024-05-14] MED LIST changes: +ESOM1CAP20 PO; -ESOM1CAP5 PO
[2024-05-14 17:32] LABS: APPEARANCE, URINE CLEAR (CLEAR); BACTERIA, URINE AUTO NEGATIVE (NEGATIVE); BILIRUBIN, URINE AUTO NEGATIVE (NEGATIVE); BLOOD, URINE BLOOD NEGATIVE (NEGATIVE); COLOR, URINE YELLOW (YELLOW); GLUCOSE, URINE (UA) AUTO NEGATIVE (NEGATIVE); KETONE, URINE AUTO TRACE mg/dL (NEGATIVE); LEUKOCYTE ESTERASE, URINE AUTO TRACE (NEGATIVE); MUCUS, URINE SMALL (NEGATIVE); NITRITE, URINE AUTO NEGATIVE (NEGATIVE); PROTEIN, URINE AUTO NEGATIVE (NEGATIVE); RBC, URINE AUTO 2 /HPF (0-3); SQUAMOUS EPITHELIAL CELL UR AU 1 /HPF (0-6); WBC, URINE AUTO 1 /HPF (0-3)
== END ==
LOC: M SMT 16:59
PROVIDERS: ATTEND Nurse Practitioner Family
DX: N32.9 Bladder disorder, unspecified (principal)